=== PATIENT | female | born 1980 | race Caucasian/White ===

== ENCOUNTER 2019-06-27 15:26 | Emergency (ER) | payer SELFPAY ==
[2019-06-27 15:33] VITALS: BP 90/62
[2019-06-27] MEDS ORDERED: ACETAMINOPHEN 325 MG TABLET PO ONE (15:48)
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
--- NOTE | 2019-06-27 16:05 | RADIOLOGY REPORT (SQ) ---
EXAM DESCRIPTION: WRIST RIGHT 3 VIEWS COMPLETED DATE/TIME: 06/27/2019 3:56 pm REASON FOR STUDY: Rt wrist pain s/p injury COMPARISON: None. NUMBER OF VIEWS: Three views. TECHNIQUE: AP, lateral, and oblique radiographic images acquired of the right wrist. LIMITATIONS: None. FINDINGS: MINERALIZATION: Normal. BONES: There is a cortical disruption along the volar aspect of the distal radial metaphysis compatib le with fracture. No significant displacement or angulation. No definite intra-articular extension. SOFT TISSUES: Soft tissue swelling about the wrist. No radiopaque foreign body. OTHER: No other significant finding. IMPRESSION: Fracture along the volar aspect of the distal radial metaphysis without significant angu lation or displacement. TECHNICAL DOCUMENTATION: JOB ID: [id number] [employer]- All Rights Reserved Reading location - IP/workstation name: [email or web address]
== END 2019-06-27 16:38 | disposition home or self-care (01) ==
LOC: ER 15:26
DX: S52.501A Unspecified fracture of the lower end of right radius, initial encounter for closed fracture (principal); V19.9XXA Pedal cyclist (driver) (passenger) injured in unspecified traffic accident, initial encounter; Y93.55 Activity, bike riding
CPT/HCPCS: 99283